=== PATIENT | female | born 1950 | race Caucasian/White ===

== ENCOUNTER 2018-03-11 11:59 | Outpatient (REF) | payer MEDICARE, BC, SELFPAY ==
[2018-03-11 21:34] LABS: TSH (W/Ref FT4) 4.12 uIU/mL (0.358-3.74)
[2018-03-11 21:52] LABS: FREE T4 0.85 ng/dL (0.76-1.46)
== END 2018-03-11 12:19 ==
LOC: NCHCN 11:59
PROVIDERS: PCP Family Medicine; Visit Provider Family Medicine
DX: E03.9 Hypothyroidism, unspecified (principal)
CPT/HCPCS: 84439; 84443

== ENCOUNTER 2018-05-12 10:13 | Outpatient (CLI) | payer MEDICARE, BC, SELFPAY ==
[2018-05-12 13:28] LABS: Cholesterol 264 mg/dL (50-200); HDL Cholesterol 70 mg/dL (40-60); LDL CHOLESTEROL 164 mg/dL (<100); Triglyceride 113 mg/dL (30-150)
[2018-05-12 13:37] LABS: TSH (W/Ref FT4) 1.07 uIU/mL (0.358-3.74)
== END 2018-05-12 10:33 ==
PROVIDERS: Family Medicine; PCP Family Medicine; Visit Provider Internal Medicine
DX: E78.5 Hyperlipidemia, unspecified (principal); E03.9 Hypothyroidism, unspecified
CPT/HCPCS: 36415; 80061; 83721; 84443

== ENCOUNTER 2018-12-01 12:25 | Outpatient (CLI) | payer MEDICARE, BC, SELFPAY ==
--- NOTE | 2018-12-01 12:40 | DI.RAD_ITS ---
SYMPTOMS/DIAGNOSIS: LEFT CHEST RATTLE, CHEST PAIN, R07.9 CHEST X-RAY, PA AND LATERAL: Comparison is 03/06/10 and 03/26/10. The heart size is within normal limits. There is unchanged tortuosity of the thoracic aorta. The pulmonary vasculature is otherwise unremarkable. The lungs are free of infiltrates, effusions or pneumothoraces. There is scarring or atelectasis seen in the left lung base. No acute osseous abnormalities identified. The tracheal air shadow is grossly unremarkable. IMPRESSION: Negative examination.
[2018-12-01 13:02] LABS: Absolute Basophil Count 0.02 k/cumm (0.0-0.2); Absolute Eosinophil Count 0.24 k/cumm (0.0-0.7); Absolute Lymphocyte Count 1.78 k/cumm (1.2-3.4); Absolute Monocyte Count 0.32 k/cumm (0.11-0.7); Absolute Neutrophil Count 1.58 k/cumm (1.2-6.7); Basophils % 0.5; Eosinophils % 6.1; HCT 41.3 % (36.0-46.0); HGB 13.7 g/dL (12.0-15.5); Lymphocytes % 45.2; Mean Corp. HGB Concentration 33.2 g/dL (32.0-36.0); Mean Corpuscular Hemoglobin 33.1 pg (27.0-33.0); Mean Corpuscular Volume 99.8 fL (80-95); Mean Platelet Volume 9.4 fL (8.0-11.0); Monocytes % 8.1; Neutrophils % 40.1; Platelet Count 169 x1000/uL (130-400); RBC 4.14 m/cumm (4.00-5.20); RBC Distribution Width 12.2 % (11.7-14.6); White Blood Cell Count 3.94 k/cumm (4.4-10.8)
[2018-12-01 15:10] LABS: TSH (W/Ref FT4) 1.24 uIU/mL (0.36-3.74)
[2018-12-02 15:46] LABS: Anion Gap 12.3 mmol/L (3-11); BUN 11 mg/dL (7-18); CO2 25.7 mmol/L (21.0-32.0); CREATININE 0.58 mg/dL (0.55-1.02); Calcium 8.6 mg/dL (8.5-10.1); Calculated LDL 151 mg/dL; Chloride 102 mmol/L (98-107); Cholesterol 240 mg/dL (50-200); Glucose 113 mg/dL (70-100); HDL Cholesterol 64 mg/dL (40-60); Potassium 3.9 mmol/L (3.5-5.1); Sodium 140 mmol/L (136-145); Triglyceride 128 mg/dL (30-150)
== END 2018-12-01 12:45 ==
PROVIDERS: PCP Family Medicine; Visit Provider Family Medicine
DX: R07.9 Chest pain, unspecified (principal); E03.9 Hypothyroidism, unspecified; R53.83 Other fatigue; R09.89 Other specified symptoms and signs involving the circulatory and respiratory systems
CPT/HCPCS: 36415; 80048; 80061; 83721; 71046; 84443; 85025

== ENCOUNTER 2019-06-01 18:52 | Outpatient (REF) | payer MEDICARE, BC, SELFPAY | END 2019-06-01 19:12 | LOC: LBN 18:52 | PROVIDERS: PCP Family Medicine; Visit Provider Nurse Practitioner Family | DX: J02.9 Acute pharyngitis, unspecified (principal) | CPT/HCPCS: 87070 ==

== ENCOUNTER 2019-11-17 16:30 | Outpatient (REF) | payer MEDICARE, BC, SELFPAY ==
[2019-11-17 21:40] LABS: Abs Immature Grans 0.01 k/cumm (0.0-0.09); Absolute Basophil Count 0.01 k/cumm (0.0-0.2); Absolute Eosinophil Count 0.13 k/cumm (0.0-0.7); Absolute Lymphocyte Count 1.74 k/cumm (1.2-3.4); Absolute Monocyte Count 0.35 k/cumm (0.11-0.7); Absolute Neutrophil Count 1.78 k/cumm (1.2-6.7); Basophils % 0.2; Eosinophils % 3.2; HCT 43.2 % (36.0-46.0); HGB 14.1 g/dL (12.0-15.5); Immature Grans % 0.2 %; Lymphocytes % 43.3; Mean Corp. HGB Concentration 32.6 g/dL (32.0-36.0); Mean Corpuscular Hemoglobin 33.3 pg (27.0-33.0); Mean Corpuscular Volume 101.9 fL (80-95); Mean Platelet Volume 9.7 fL (8.0-11.0); Monocytes % 8.7; Neutrophils % 44.4; Platelet Count 202 x1000/uL (130-400); RBC 4.24 m/cumm (4.00-5.20); RBC Distribution Width 12.5 % (11.7-14.6); White Blood Cell Count 4.02 k/cumm (4.4-10.8)
[2019-11-17 22:27] LABS: Anion Gap 8.5 mmol/L (3-11); BUN 13 mg/dL (7-18); CO2 29.5 mmol/L (21.0-32.0); CREATININE 0.65 mg/dL (0.55-1.02); Calcium 9.1 mg/dL (8.5-10.1); Chloride 103 mmol/L (98-107); Glucose 99 mg/dL (74-106); Potassium 3.7 mmol/L (3.5-5.1); Sodium 141 mmol/L (136-145); TSH 0.67 uIU/mL (0.36-3.74)
[2019-11-17 22:29] LABS: Folate > 20.0 ng/mL (8.6-20.0)
[2019-11-17 23:04] LABS: Vitamin B12 361 pg/mL (193-986)
== END 2019-11-17 16:50 ==
LOC: NCHCN 16:30
PROVIDERS: PCP Family Medicine; Visit Provider Family Medicine
DX: E03.9 Hypothyroidism, unspecified (principal); D75.89 Other specified diseases of blood and blood-forming organs; R42 Dizziness and giddiness; R53.83 Other fatigue
CPT/HCPCS: 80048; 82607; 82746; 84443; 85025

== ENCOUNTER 2020-01-05 14:40 | Outpatient (REF) | payer MEDICARE, BC, SELFPAY ==
[2020-01-09 13:53] LABS: Patient Race White; SARS-CoV-2 RNA Undetected (Undetected); SARS-CoV-2 Specimen Source Nasopharynx
== END 2020-01-05 15:00 ==
LOC: NCHCN 14:40
PROVIDERS: PCP Family Medicine; Visit Provider Family Medicine
DX: Z20.828 Contact with and (suspected) exposure to other viral communicable diseases (principal)
CPT/HCPCS: U0003

== ENCOUNTER 2020-08-23 19:03 | Outpatient (REF) | payer MEDICARE, BC, SELFPAY ==
[2020-08-23 13:09] LABS: HCT 42.4 % (36.0-46.0); HGB 14.2 g/dL (11.2-15.7); MCH 33.1 pg (27.0-33.0); MCHC 33.5 % (32.0-36.0); MCV 98.8 fL (80-95); MPV 9.6 fL (8.0-11.0); Platelet Count 187 10^3/uL (130-400); RBC 4.29 10^6/uL (3.93-5.22); RDW 12.4 % (11.7-14.6); RDW-SD 44.9 fL
[2020-08-23 13:52] LABS: ALT 28 U/L (14-59); AST 26 U/L (15-37); Albumin 4.1 g/dL (3.4-5.0); Alkaline Phosphatase 32 U/L (46-116); Anion Gap 10.1 mmol/L (3-11); BUN 9 mg/dL (7-18); Bilirubin, Total 0.5 mg/dL (0.2-1.0); CO2 27.9 mmol/L (21.0-32.0); CREATININE 0.6 mg/dL (0.55-1.02); Calcium 9.1 mg/dL (8.5-10.1); Chloride 106 mmol/L (98-107); Glucose 94 mg/dL (74-106); Potassium 3.9 mmol/L (3.5-5.1); Sodium 144 mmol/L (136-145); TSH (W/Ref FT4) 1.02 uIU/mL (0.36-3.74); Total Protein 6.7 g/dL (6.4-8.2)
== END 2020-08-23 19:04 | disposition home or self-care (01) ==
LOC: NCHCN 19:03
PROVIDERS: PCP Family Medicine; Visit Provider Nurse Practitioner Family
DX: I48.0 Paroxysmal atrial fibrillation (principal)
CPT/HCPCS: 80053; 85027; 83735; 84443

== ENCOUNTER 2021-03-20 15:10 | Outpatient (REF) | payer MEDICARE, BC, SELFPAY ==
[2021-03-20 16:14] LABS: HCT 42.6 % (36.0-46.0); HGB 13.9 g/dL (11.2-15.7); MCH 33.3 pg (27.0-33.0); MCHC 32.6 % (32.0-36.0); MCV 102.2 fL (80-95); MPV 9.6 fL (8.0-11.0); Platelet Count 215 10^3/uL (130-400); RBC 4.17 10^6/uL (3.93-5.22); RDW 12.2 % (11.7-14.6); RDW-SD 46.2 fL; WBC 5.65 10^3/uL (4.4-10.8)
[2021-03-20 16:17] LABS: ESR 2 mm/hr (0-30)
[2021-03-20 16:27] LABS: ALT 23 U/L (14-59); AST 21 U/L (15-37); Albumin 4.1 g/dL (3.4-5.0); Alkaline Phosphatase 44 U/L (46-116); Bilirubin, Total 0.3 mg/dL (0.2-1.0); Total Protein 6.9 g/dL (6.4-8.2)
[2021-03-20 16:39] LABS: Bilirubin, Direct 0.1 mg/dL (0.0-0.2); C-Reactive Protein 0.07 mg/dL (0.0-0.3)
== END 2021-03-20 15:11 | disposition home or self-care (01) ==
LOC: NCHCN 15:10
PROVIDERS: PCP Family Medicine; Visit Provider Family Medicine
DX: K06.8 Other specified disorders of gingiva and edentulous alveolar ridge (principal)
CPT/HCPCS: 80076; 85027; 85652; 85610; 86140; 93970

== ENCOUNTER 2021-07-07 14:31 | Outpatient (REF) | payer MEDICARE, BC, SELFPAY ==
--- NOTE | 2021-07-07 13:45 | PAPFT_PTH ---
PATIENT: Anne Dawson LOC: [facility]#:[id number] AGE/SX: 70/F ROOM: RE07/07/[address]: Alvarez Mann : 1950 BED: DIS: 07/07/2021 SPEC #: [id number] RECD: 07/10/21 14:35 STATUS: KEIRA REBrooks #: [id number] KATE: 07/07/21 13:[address]: Alvarez Mann DEPT: [facility] Cytology RECD BY: Kimberly Raygoza Tissues: 1 - CX/ENDOCX FOR PAP SMEARS Procedures: PAP THIN PREP/UVM Screening HPV DNA PROBE Comments: [id number]
--- OUTSIDE RECORDS SUMMARY | 2021-07-07 14:37 | XMS_ITS | CCD ---
:1950 Author Care Team Providers Name Role Phone MD KATHERIN Attending Physician Unavailable Vital Signs Unknown or Not Available. Allergies Allergy Code Allergy Type Reaction Status SHELLFISH\X0D0A\ {Clinical 0 Drug allergy NAUSEA AND A ctive monitoring unavailable} VOMITING ? STEROID VS PARTH 0 Drug allergy ITCHYNESS AFTER Active {Clinical monitoring JOINT INJECTION unavailable} TAPE {Clinical monitoring 0 Drug allergy Ac tive unavailable} PROCHLORPERAZINE 8704 Drug allergy Active TAPE 0 Allergy to Active substance Procedures Unknown or Not Available. History of Immunizations Unknown or Not Available. Problems Unknown or Not Available. Results Unknown or Not Available. Active Medications Unknown or Not Available. Medications Administered During Visit Unknown or Not Available. Encounters Encounter Diagnosis Diagnosis Code Start Date Pain in left leg S51393 01/10/2021 Social History Smoking Status Code Start Date End Date Never smoker [id number] Patient Decision Aids Unknown or Not Available. Discharge Instructions You were admitted to [facility] on 01/10/2021 12:55 with a principal diagnosis of Pain in left leg You were discharged from [facility] on 01/10/2021 12:55 Should you have any questions prior to d ischarge, please contact a member of your healthcare team. If you have left the spital and have any questions, please contact your primary care physician. Chief Complaint and Reason For Visit Unknown or Not Available. Function Status Unknown or Not Available. Plan of Care Unknown or Not Available. Referral/Transition of Care Unknown or Not Available.
--- OUTSIDE RECORDS SUMMARY | 2021-07-07 14:37 | XMS_ITS | CCD ---
:1950 Author Care Team Providers Name Role Phone MITCHELL Attending Physician Unavailable MITCHELL Sahu (Secondary) Physician Unavailab le Vital Signs Unknown or Not Available. Allergies [...] Encounters Encounter Diagnosis Diagnosis Code Start Date Idiopathic osteoarthritis [id number] 03/10/2021 Social History Smoking Status Code Start Date End Date Never smoker [id number] Patient Decision Aids Unknown or Not Available. Discharge Instructions You were admitted to [facility] on 03/10/2021 09:02 with a principal diagnosis of Unilateral primary osteoart hritis, right knee You were discharged from [facility] on 03/10/2021 00:00 Should you have any questions prior to d ischarge, please contact a member of your healthcare team. If you have left the ho spital and have any questions, please contact your primary care physician. Chief Complaint and Reason For Visit Unknown or Not Available. Function Status Unknown or Not Available. Plan of Care Unknown or Not Available. Referral/Transition of Care Unknown or Not Available.
--- OUTSIDE RECORDS SUMMARY | 2021-07-07 14:37 | XMS_ITS | CCD ---
:1950 Author Care Team Providers Name Role Phone MD HERMINIO Attending Physician Unavailable Vital Signs Unknown or [...] Encounters Encounter Diagnosis Diagnosis Code Start Date Encounter for screening mammogram for malignant Z1231 11/16/2020 neoplasm of breast Social History Smoking Status Code Start Date End Date Never smoker [id number] Patient Decision Aids Unknown or Not Available. Discharge Instructions You were admitted to [facility] on 11/16/2020 08:54 with a principal diagnosis of Encounter for screening carl mogram for malignant neoplasm of breast You were discharged from [facility] on 11/16/2020 08:54 Should you have any questions prior to [...]
--- OUTSIDE RECORDS SUMMARY | 2021-07-07 14:37 | XMS_ITS | CCD ---
:1950 Author Care Team Providers Name Role Phone ARIANA SANDOVAL Attending Physician Unavailable Vital Signs Unknown or [...] Available. Problems Unknown or Not Available. Results BASIC METABOLIC PANEL (BMP) - Collect Da te/Time: 06/19/2021 09:36 Test Name Code Test Result Test Units Test Ref Range GLUCOSE 2345-7 91 mg/dL L=70 H=11 6 BUN 3094-0 10 mg/dL L=6 H=25 CREATININE 2160-0 0.61 mg/dL L=0.51 H=0.95 SODIUM SERUM 2951-2 142 mmol/L L=136 H=14 5 POTASSIUM SERUM 2823-3 4.2 mmol/L L=3.4 H =5.2 CHLORIDE SERUM 2075-0 104 mmol/L L=96 H= 110 CARBON DIOXIDE (CO2) 2028-9 32 mmol/L L=22 H=34 ANION GAP 83293-9 6.4 mmol/L CALCIUM SERUM 21754-8 9.1 mg/dL L=8.2 H=10.2 AGE 70 years eGFR (non-Afr.Amer.) 18393-4 97 mL/min eGFR (Afr-Tanzanian) 69026-3 117 mL/min NTX-TELOPEPTIDE URINE* - Collect Date/Ti me: 06/19/2021 09:36 Test Name Code Test Result Test Units Test Ref [place] N[place] 13591-6 31 nmol/[place] [address]-1 23 Creatinine, 2161-8 15 N/A Random, U Active Medications Unknown or Not Available. Medications Administered During Visit Unknown or Not Available. Encounters Encounter Diagnosis Diagnosis Code Start Date Senile osteoporosis [id number] 06/19/2021 Social History Smoking Status Code Start Date End Date Never smoker [id number] Patient Decision Aids Unknown or Not Available. Discharge Instructions You were admitted to [facility] on 06/19/2021 09:02 with a principal diagnosis of Age-related osteoporosis wi thout current pathological fracture You had the following tests done: BASIC METABOLIC PANEL (BMP) NTX-TELOPEPTIDE URINE* You were discharged from [facility] on 06/19/2021 09:02 Should you have any questions prior to [...]
--- OUTSIDE RECORDS SUMMARY | 2021-07-07 14:37 | XMS_ITS | CCD ---
:1950 Author Care Team Providers Name Role Phone MD MITCHELL Attending Physician Unavailable Vital Signs Unknown or [...] TAPE 0 Allergy to Active substance Procedures Procedure Code Procedure Type Date Arthrocentesis Aspir&/Inj Major 88497 CPT 11/30/2020 Jt/Bursa w/o US History of Immunizations Unknown or Not Available. Problems Unknown or Not Available. Results Unknown or Not Available. Active Medications Unknown or Not Available. Medications Administered During Visit Unknown or Not Available. Encounters Encounter Diagnosis Diagnosis Code Start Date Unilateral primary osteoarthritis, right knee M1711 11/30/2020 Social History Smoking Status Code Start Date End Date Never smoker [id number] Patient Decision Aids Unknown or Not Available. Discharge Instructions You were admitted to [facility] on 11/30/2020 14:27 with a principal diagnosis of Unilateral primary osteoart hritis, right knee You had the following procedures done: Arthrocentesis Aspir&/Inj Major Jt/Bursa w/o US You were discharged from [facility] on 11/30/2020 14:27 Should you have any questions prior to [...]
--- OUTSIDE RECORDS SUMMARY | 2021-07-07 14:37 | XMS_ITS | CCD ---
:1950 Author Care Team Providers Name Role Phone Sally DURHAM Attending Physician Unavailable Vital Signs Unknown or [...] Available. Problems Unknown or Not Available. Results CULT URINE CULTURE* - Collect Date/Time: 06/24/2021 09:46 Test Name Code Test Result Test Units Test Ref Range COLLECTION MODE: CLEAN CATCH N/A URINALYSIS WITH REFLEX CULT IF POSITIVE* - Collect Date/Time: 06/24/2021 09:46 Test Name Code Test Result Test Units Test Ref Range COLLECTION MODE: CLEAN CATCH N/A Color YELLOW N/A yellow Appearance HAZY N/A clear Glucose urine NEGATIVE N/A negative mg/ dl Bilirubin NEGATIVE N/A negative Ketones TRACE N/A negative mg/d l Spec gravity 1.025 N/A 1.003 - 1.030 pH urine 6.0 N/A 5.0 - 7.0 Protein NEGATIVE N/A negative mg/d l Urobilinogen 0.2 N/A <or= 1 EU/d l Nitrite. NEGATIVE N/A negative Blood LARGE N/A negative Leukocytes. SMALL N/A negative MICROSCOPIC INDICATED N/A WBCs. >100 N/A 0-5 / hpf RBCs 5-10 N/A 0-5 / hpf Epith cells 0-5 N/A 0-5 / hpf Cell types squamous N/A Crystals none N/A none Bacteria moderate N/A none Mucus none N/A none Casts none N/A none /lp f Other AMOEBOID LEUKOCYTES N/A Active Medications Unknown or Not Available. Medications Administered During Visit Unknown or Not Available. Encounters Encounter Diagnosis Diagnosis Code Start Date History of - urinary disease [id number] 06/24/2021 Social History Smoking Status Code Start Date End Date Never smoker [id number] Patient Decision Aids Unknown or Not Available. Discharge Instructions You were admitted to [facility] on 06/24/2021 09:44 with a principal diagnosis of Personal history of other d iseases of urinary system You had the following tests done: CULT URINE CULTURE* URINALYSIS WITH REFLEX CULT IF POSITIVE* You were discharged from [facility] on 06/24/2021 09:44 Should you have any questions prior to [...]
--- OUTSIDE RECORDS SUMMARY | 2021-07-07 14:37 | XMS_ITS | CCD ---
:1950 Author Care Team Providers Name Role Phone MD KATHERIN Attending Physician Unavailable MD KATHERIN Er Physician 1 Unavailable Vital Signs Unknown or Not Available. [...] Code Start Date Pain in left leg S41795 01/09/2021 Social History Smoking Status Code Start Date End Date Never smoker [id number] Patient Decision Aids Unknown or Not Available. Discharge Instructions You were admitted to [facility] 01 on 01/09/2021 09:53 with a principal diagnosis of Pain in left leg You were discharged from [facility] on 01/09/2021 11:14 Should you have any questions prior to d ischarge, please contact a member of your healthcare team. If you have left the spital and have any questions, please contact your primary care physician. Chief Complaint and Reason For Visit Chief Complaint Date of Onset LT LEG PAIN Function Status Unknown or Not Available. Plan of Care Unknown or Not Available. Referral/Transition of Care Unknown or Not Available.
--- OUTSIDE RECORDS SUMMARY | 2021-07-07 14:37 | XMS_ITS | CCD ---
[...] Available. Problems Unknown or Not Available. Results GLUCOSE FASTING BLOOD* - Collect Date/Ti me: 04/14/2021 08:00 Test Name Code Test Result Test Units Test Ref Range GLUCOSE FASTING 74098-7 96 mg/dL L=70 H =116 LIPID PANEL* - Collect Date/Time: 2020 08:00 Test Name Code Test Result Test Units Test Ref Range CHOLESTEROL 2093-3 301 mg/dL L=0 H=200 TRIGLYCERIDES 2571-8 76 mg/dL L=57 H=256 HDL 2085-9 75 mg/dL L=38 H=92 non-HDL-C 18533-3 226 mg/dL L=0 H=160 LDL (CALC) 56947-7 211 mg/dL L=0 H=130 % HDL 24.9 % Chol/HDL Ratio 9830-1 4.0 L=0.0 H=4.4 CHD Relative Risk 0.9 x Avg L=0.0 H=1.0 LDL/HDL Ratio 48908-1 2.8 L=0.0 H=3.2 CHD Relative Risk. 0.9 x Avg L=0.0 H=1.0 FASTING STATUS: FASTING N/A Active Medications Unknown or Not Available. Medications Administered During Visit Unknown or Not Available. Encounters Encounter Diagnosis Diagnosis Code Start Date Prediabetes R7303 04/14/2021 Social History Smoking Status Code Start Date End Date Never smoker [id number] Patient Decision Aids Unknown or Not Available. Discharge Instructions You were admitted to [facility] on 04/14/2021 07:23 with a principal diagnosis of Prediabetes You had the following tests done: GLUCOSE FASTING BLOOD* LIPID PANEL* You were discharged from [facility] on 04/14/2021 07:23 Should you have any questions prior to [...]
--- OUTSIDE RECORDS SUMMARY | 2021-07-07 14:38 | XMS_ITS | CCD ---
:1950 Author Care Team Providers Name Role Phone MD ROMAN Attending Physician Unavailable Vital Signs Unknown or [...] Available. Problems Unknown or Not Available. Results [facility] COVID RHEONIX - Collect Date/Time : 01/25/2021 11:00 Test Name Code Test Result Test Units Test Ref Range SOURCE= Anterior nasal N/A Tier- EXPOSURE N/A SARS COV2 RNA: 31428-4 NEGATIVE N/A REFERENCE RAN GE: NEGAT Active Medications Unknown or Not Available. Medications Administered During Visit Unknown or Not Available. Encounters Encounter Diagnosis Diagnosis Code Start Date CONTACT WITH AND SUSPECTED EXPOSURE TO COVID-19 G31274 01/25/2021 Social History Smoking Status Code Start Date End Date Never smoker [id number] Patient Decision Aids Unknown or Not Available. Discharge Instructions You were admitted to [facility] on 01/25/2021 14:27 with a principal diagnosis of Contact with and (suspected ) exposure to COVID-19 You had the following tests done: [facility] COVID RHEONIX You were discharged from [facility] on 01/25/2021 14:27 Should you have any questions prior [...]
== END 2021-07-07 14:32 | disposition home or self-care (01) ==
LOC: NCHCN 14:31
PROVIDERS: PCP Family Medicine; Visit Provider Family Medicine
DX: Z87.448 Personal history of other diseases of urinary system (principal); Z12.4 Encounter for screening for malignant neoplasm of cervix; Z11.51 Encounter for screening for human papillomavirus (HPV)
CPT/HCPCS: 88142; 87086; 87624

== ENCOUNTER 2023-05-08 11:28 | Outpatient (REF) | payer MEDICARE, BC, SELFPAY ==
--- OUTSIDE RECORDS SUMMARY | 2023-05-08 11:32 | XMS_ITS | CCD ---
Author Name Unknown Address [address] [place] [address] [id number] Organization Unknown Address [address] [place] [address] [phone] Care Team Providers Care Tight Rope Walker Name Role Phone BOB OWENS MD Attending Physician [phone] Vital Signs Unknown or Not Available. Allergies Allergy Code Allergy Type Reaction Status SHELLFISH\X0D0A\ {Clinical monitoring unavailable} 0 Drug allergy NAUSEA AND VOMITING Acti ve ? STEROID VS PARTH {Clinical monitoring unavailable} 0 Drug allergy ITCHYNESS AFTER JOINT INJECTION Active TAPE {Clinical monitoring unavailable} 0 Drug allergy Active PROCHLORPERAZINE 8704 Drug allergy Active TAPE 0 Allergy to substance Acti ve Procedures Unknown or Not Available. History of Immunizations Unknown or Not Available. Problems Unknown or Not Available. Results [facility]MAR DUMAS - [facility] ct Date/Time: 01/27/2021 11:00 Test Name Code Test Result Test Units Test Ref Rang e SOURCE= Anterior nasal N/A Tier- EXPOSURE N/A SARS COV2 RNA: 60620-9 POSITIVE N/A REFERENCE RANGE: NEGAT Active Medications Unknown or Not Available. Medications Administered During Visit Unknown or Not Available. Encounters Encounter Diagnosis Diagnosis Code Start Date COVID-19 U071 01/27/2021 Social History Smoking Status Code Start Date End Date Never smoker [id number] Patient Decision Aids Unknown or Not Available. Discharge Instructions You were admitted to [facility] on 01/27/2021 14:37 with a principal diagnosis of COVID-19 You had the following tests done:OMAR DUMAS You were discharged from [facility] on 01/27/2021 14:37 Should you have any questions prior to discharge, please contact a member of your healthcare team. If you have left the hospital and have any questions, please contact your primary care physician. Chief Complaint and Reason For Visit Unknown or Not Available. Function Status Unknown or Not Available. Plan of Care Unknown or Not Available. Referral/Transition of Care Unknown or Not Available.
--- OUTSIDE RECORDS SUMMARY | 2023-05-08 11:32 | XMS_ITS | CCD ---
Author Name Unknown Address [address] [place] [address] [phone] Organization Unknown Address [address] [place] [address] [phone] Care Team Providers Care Medical Lab Director Name Role Phone BOB OWENS MD Attending Physician [phone] Vital Signs Unknown or Not Available. Allergies [...] Problems Unknown or Not Available. Results [facility]MAR COVID GAYX - [place] ct Date/Time: 01/25/2021 11:00 Test Name Code Test Result Test Units Test Ref Rang e SOURCE= Anterior nasal N/A Tier- EXPOSURE N/A SARS COV2 RNA: 26751-2 NEGATIVE N/A REFERENCE RANGE: NEGAT Active Medications Unknown or Not Available. Medications Administered During Visit Unknown or Not Available. Encounters Encounter Diagnosis Diagnosis Code Start Date CONTACT WITH AND SUSPECTED EXPOSURE TO COVID-19 R16963 01/25/2021 Social History Smoking Status Code Start Date End Date Never smoker [id number] Patient Decision Aids Unknown or Not Available. Discharge Instructions You were admitted to [facility] on 01/25/2021 14:27 with a principal diagnosis of Contact with and (suspected) exposure to COVID-19 You had the following tests done:OMAR RASHIDX You were discharged from [facility] on 01/25/2021 14:27 Should you have any [...]
--- OUTSIDE RECORDS SUMMARY | 2023-05-08 11:33 | XMS_ITS | CCD ---
Author Name Unknown Address [address] [place] [address] [id number] Organization Unknown Address [address] [place] [address] [phone] Care Team Providers Care Infection Control Preventionist Name Role Phone DOMENICO LYN Attending Physician [phone] DOMENICO LYN Rounding (Secondary) Physician [phone] Vital Signs Unknown or Not Available. Allergies [...] Diagnosis Diagnosis Code Start Date Idiopathic osteoarthritis [id number] 2022 Social History Smoking Status Code Start Date End Date Never smoker 554231774 Patient Decision Aids Unknown or Not Available. Discharge Instructions You were admitted to [facility] on 10/08/2022 00:00 with a principal diagnosis of Unilateral primary osteoarthritis, right knee You were discharged from [facility] on 10/08/2022 00:00 Should you have any questions prior [...]
--- OUTSIDE RECORDS SUMMARY | 2023-05-08 11:33 | XMS_ITS | CCD ---
Author Name Unknown Address [address] [place] [address] [id number] Organization Unknown Address [address] [place] [address] [phone] Care Team Providers Care Supervisor Nurse Name Role Phone FLORENTIN PANDEY MD Attending Physician [phone] Vital Signs Unknown or Not Available. Allergies [...] Code Start Date Pain in left leg T69007 01/10/2021 Social History Smoking Status Code Start Date End Date Never smoker 141450333 Patient Decision Aids Unknown or Not Available. Discharge Instructions You were admitted to [facility] on 01/10/2021 12:55 with a principal diagnosis of Pain in left leg You were discharged from [facility] on 01/10/2021 12:55 Should you [...]
--- OUTSIDE RECORDS SUMMARY | 2023-05-08 11:33 | XMS_ITS | CCD ---
Author Name Unknown Address [address] [place] [address] [id number] Organization Unknown Address [address] [place] [address] [phone] Care Team Providers Care Prepleater Name Role Phone FLORENTIN PANDEY MD Attending Physician [phone] FLORENTIN PANDEY MD Er Physician [phone] Vital Signs Unknown or Not Available. Allergies [...] Code Start Date Pain in left leg H48798 01/09/2021 Social History Smoking Status Code Start Date End Date Never smoker [id number] Patient Decision Aids Unknown or Not Available. Discharge Instructions You were admitted to [facility] on 01/09/2021 09:53 with a principal diagnosis of Pain in left leg You were discharged from [facility] on 01/09/2021 11:14 Should you have any [...]
--- OUTSIDE RECORDS SUMMARY | 2023-05-08 11:33 | XMS_ITS | CCD ---
Author Name Unknown Address [address] [place] [address] [phone] Organization Unknown Address [address] [place] [address] [phone] Care Team Providers Care National Dedicated Truck Driver Name Role Phone CRYSTAL MEDRANO MD Attending Physician [phone] Vital Signs Unknown or Not Available. Allergies Allergy Code Allergy Type Reaction Status SHELLFISH\X0D0A\ {Clinical monitoring unavailable} 0 Drug allergy NAUSEA AND VOMITING Acti ve ? STEROID VS PARTH {Clinical monitoring unavailable} 0 Drug allergy ITCHYNESS AFTER JOINT INJECTION Active TAPE {Clinical monitoring unavailable} 0 Drug allergy Active PROCHLORPERAZINE 8704 Drug allergy Active TAPE 0 Allergy to substance Acti ve Procedures Procedure Code Procedure Type Date Arthrocentesis Aspir&/[place] [address] CPT 11/30/2020 History of Immunizations Unknown or Not Available. Problems Unknown or Not Available. Results Unknown or Not Available. Active Medications Unknown or Not Available. Medications Administered During Visit Unknown or Not Available. Encounters Encounter Diagnosis Diagnosis Code Start Date Unilateral primary osteoarthritis, right knee M1 711 11/30/2020 Social History Smoking Status Code Start Date End Date Never smoker 102573140 Patient Decision Aids Unknown or Not Available. Discharge Instructions You were admitted to [facility] on 11/30/2020 14:27 with a principal diagnosis of Unilateral primary osteoarthritis, right knee You had the following procedures done:Arthrocentesis Aspir&/Inj Major Jt/Bursa w/o US You were discharged from [facility] on 11/30/2020 14:27 Should you have [...]
--- OUTSIDE RECORDS SUMMARY | 2023-05-08 11:33 | XMS_ITS | CCD ---
Author Name Unknown Address [address] [place] [address] [phone] Organization Unknown Address [address] [place] [address] [phone] Care Team Providers Care Detacker Name Role Phone СЕРГЕЙ AGUIRRE Attending Physician [phone] Vital Signs Unknown or Not Available. Allergies [...] Diagnosis Diagnosis Code Start Date Pain in right foot G54040 01/28/2023 Social History Smoking Status Code Start Date End Date Never smoker [id number] Patient Decision Aids Unknown or Not Available. Discharge Instructions You were admitted to [facility] on 01/28/2023 09:02 with a principal diagnosis of Pain in right foot You were discharged from [facility] on 01/28/2023 09:02 Should you have any questions prior [...]
--- OUTSIDE RECORDS SUMMARY | 2023-05-08 11:33 | XMS_ITS | CCD ---
Author Name Unknown Address [address] [place] [address] [phone] Organization Unknown Address [address] [place] [address] [phone] Care Team Providers Care Career Education Teacher Name Role Phone KRISTY CHENEY Attending Physician [phone] KRISTY CHENEY Er Physician 3 [phone] JYOTI Ernandez Registered Nurse [phone] Vital Signs Vital Sign Value Unit Date/Time Recent/Initial ? BMI (Body Mass Index) 26.96 kg/m^2 09/13/2022 00: 58 Initial VS Weight Measured 162 lbs 09/13/2022 00:58 Ini tial VS Height 65 in 09/13/2022 00:58 Initial VS BSA (Body Surface Area) 1.84 m^2 09/13/2022 0 0:58 Initial VS BP Systolic 157 mmHg 09/13/2022 00:58 Initial VS BP Diastolic 89 mmHg 09/13/2022 00:58 Initia l VS Respiratory Rate 18 bpm 09/13/2022 00:58 In itial VS Heart Rate 62 bpm 09/13/2022 00:58 Initial VS O2 % BldC Oximetry 97 % 09/13/2022 00:58 Initial VS Body Temperature 36.1 degrees 09/13/2022 00:58 In itial VS BP Systolic 136 mmHg 09/13/2022 02:34 Most Re cent VS BP Diastolic 84 mmHg 09/13/2022 02:34 Most R ecent VS Respiratory Rate 18 bpm 09/13/2022 02:[address] Recent VS Heart Rate 55 bpm 09/13/2022 02:34 Most Rec ent VS O2 % BldC Oximetry 95 % 09/13/2022 02:34 Most Recent VS Allergies Allergy Code Allergy Type Reaction Status [...] Results BASIC METABOLIC PANEL (BMP) - Collect Date/Time: 09/13/2022 01:20 Test Name Code Test Result Test Units Test Ref Rang e GLUCOSE 2345-7 95 mg/dL L=70 H=116 BUN 3094-0 11 mg/dL L=6 H=25 CREATININE 2160-0 0.55 mg/dL L=0.51 H=0.95 SODIUM SERUM 2951-2 141 mmol/L L=136 H=145 POTASSIUM SERUM 2823-3 3.6 mmol/L L=3.4 H=5 .2 CHLORIDE SERUM 2075-0 105 mmol/L L=96 H=110 CARBON DIOXIDE (CO2) 2028-9 26 mmol/L L=22 H=34 ANION GAP 60636-2 9.6 mmol/L CALCIUM SERUM 00868-3 9.0 mg/dL L=8.2 H=10. 2 AGE 72 years eGFR (non-Afr.Amer.) 79687-0 109 mL/min eGFR (Afr-Grenadian) 73386-6 >120 mL/min BNP (PRO-B NATRIURETIC PEPTI DE) - Collect Date/Time: 09/13/2022 01:20 Test Name Code Test Result Test Units Test Ref Rang e NT-proBNP 88774-6 265.0 pg/mL L=0.0 H=125 HEPATIC FUNCTION PANEL - Col lect Date/Time: 09/13/2022 01:20 Test Name Code Test Result Test Units Test Ref Rang e ALBUMIN 1751-7 3.6 gm/dL L=3.4 H=5.0 TOTAL PROTEIN 2885-2 6.6 gm/dL L=6.0 H=8.0 BILIRUBIN TOTAL 1975-2 0.2 mg/dL L=0.0 H=1 .3 BILIRUBIN DIRECT 1971-1 0.10 mg/dL L=0.00 H =0.50 SGOT (AST) 1920-8 24 U/L L=15 H=37 SGPT (ALT) 1742-6 23 U/L L=12 H=78 ALK. PHOS. 6768-6 46 U/L L=46 H=116 LIPASE* NEW - Collect Date/T frederic: 09/13/2022 01:20 Test Name Code Test Result Test Units Test Ref Rang e LIPASE. 30 U/L L=16 H=77 TROPONIN HIGH SENSITIVITY* - Collect Date/Time: 09/13/2022 01:20 Test Name Code Test Result Test Units Test Ref Rang e TROPONIN HS 7.9 pg/mL L=0.0 H=60.4 Specimen seq. ADM. N/A CBC W/ DIFFERENTIAL* - Colle ct Date/Time: 09/13/2022 01:20 Test Name Code Test Result Test Units Test Ref Rang e WBC 6690-2 4.15 th/cmm L=5.00 H=10.00 NEUT % 49.7 % L=40.0 H=80.0 LYMPH % 40.2 % L=10.0 H=50.0 MONO % 90824-0 7.0 % L=2.0 H=12.0 EOS % 2.4 % L=0.0 H=8.0 BASO % 0.5 % L=0.0 H=3.0 IG % 2514-8 0.2 % L=0.0 H=1.1 NRBC % 37755-5 0.0 % L=0.0 H=0.0 NEUT abs count 751-8 2.1 th/cmm L=1.6 H=8. 4 LYMPH abs count 731-0 1.7 th/cmm L=1.5 H=4 .0 MONO abs count 742-7 0.3 th/cmm L=0.2 H=1. 0 EOS abs count 711-2 0.1 th/cmm L=0.0 H=0.5 BASO abs count 704-7 0.0 th/cmm L=0.0 H=0. 2 IG abs count 11908-4 0.0 th/cmm L=0.0 H=0.1 NRBC abs count 99561-4 0.0 mil/cmm L=0.0 H=0. 0 RBC 789-8 3.87 mil/cmm L=3.90 H=5.40 HEMOGLOBIN 718-7 12.9 gm/dL L=12.0 H=16.0 HEMATOCRIT 4544-3 39 % L=37 H=47 MCV 787-2 101 fL L=82 H=92 MCH 785-6 33.3 pg L=27.0 H=31.0 MCHC 786-4 33.2 % L=32.0 H=36.0 RDW-SD 788-0 47.7 fL L=39.0 H=49.0 PLATELET COUNT 777-3 190 th/cmm L=150 H=45 0 VITAMIN B12 - Collect Date/T frederic: 09/13/2022 01:20 Test Name Code Test Result Test Units Test Ref Rang e Vitamin B12 282 N/A 211-865 Active Medications Medications Administered During Visit Medication Dose Units Frequency Route Date/Time of Last Dose LIDOCAINE PATCH 5% 1 PATCH X1 TOP 0 09/13/2022 04:28 DICYCLOMINE TABLET: 20MG 20 MG X1 PO 09/13/2022 04:28 Encounters Encounter Diagnosis Diagnosis Code Start Date Pain in thoracic spine [id number] Social History Smoking Status Code Start Date End Date Never smoker [id number] Patient Decision Aids Unknown or Not Available. Discharge Instructions You were admitted to [facility] on 09/13/2022 00:38 with a principal diagnosis of Pain in thoracic spine You had the following tests done:BASIC METABOLIC PANEL (BMP)BNP (PRO-B NATRIURETIC PEPTIDE)CBC W/ DIFFERENTIAL*HEPATIC FUNCTION PANELLIPASE* NEWTROPONIN HIGH SENSITIVITY*VITAMIN B12 You were discharged from [facility] on 09/13/2022 04:45 Should you have any questions prior to discharge, please contact a member of your healthcare team. If you have left the hospital and have any questions, please contact your primary care physician. Chief Complaint and Reason For Visit Chief Complaint Date of Onset CHEST PAINS Function Status Unknown or Not Available. Plan of Care Unknown or Not Available. Referral/Transition of Care Unknown or Not Available.
--- OUTSIDE RECORDS SUMMARY | 2023-05-08 11:33 | XMS_ITS | CCD ---
Author Name Unknown Address [address] [place] [address] [phone] Organization Unknown Address [address] [place] [address] [phone] Care Team Providers Care Medical Device Assembler Name Role Phone HERMINIO BLANCATYREL Zavala Attending Physician [phone] Vital Signs Unknown or Not Available. Allergies [...] Not Available. Results CULT URINE CULTURE* - Colle t Date/Time: 01/03/2023 12:00 Test Name Code Test Result Test Units Test Ref Rang e COLLECTION MODE: 53272-1 NOT STATED N/A URINALYSIS WITH REFLEX CULT IF POSITIVE* - Collect Date/Time: 01/03/2023 12:00 Test Name Code Test Result Test Units Test Ref Rang e COLLECTION MODE: 77949-5 NOT STATED N/A Color 5778-6 YELLOW N/A yellow Appearance 5767-9 CLEAR N/A clear Glucose urine 49605-6 NEGATIVE N/A negative mg /dl Bilirubin 5770-3 NEGATIVE N/A negative Ketones 2514-8 NEGATIVE N/A negative mg/dl Spec gravity 5811-5 1.010 N/A 1.003 - 1.03 0 pH urine 2756-5 7.0 N/A 5.0 - 7.0 Protein 90413-8 NEGATIVE N/A negative mg/dl Urobilinogen 63281-5 0.2 N/A <or= 1 EU/dl Nitrite. 5802-4 NEGATIVE N/A negative Blood 5794-3 NEGATIVE N/A negative Leukocytes. SMALL N/A negative MICROSCOPIC INDICATED N/A WBCs. 91294-2 0-5 N/A 0-5 / hpf RBCs 01053-3 5-10 N/A 0-5 / hpf Epith cells 20180-1 none N/A 0-5 / hpf Crystals none N/A none Bacteria none N/A none Mucus 8247-9 none N/A none Casts 33644-8 none N/A none /lpf Active Medications Unknown or Not Available. Medications Administered During Visit Unknown or Not Available. Encounters Encounter Diagnosis Diagnosis Code Start Date Dysuria [id number] 01/03/2023 Social History Smoking Status Code Start Date End Date Never smoker 238464387 Patient Decision Aids Unknown or Not Available. Discharge Instructions You were admitted to [facility] on 01/03/2023 12:31 with a principal diagnosis of Dysuria You had the following tests done:CULT URINE CULTURE*URINALYSIS WITH REFLEX CULT IF POSITIVE* You were discharged from [facility] on 01/03/2023 12:31 Should you have any questions prior to [...]
--- OUTSIDE RECORDS SUMMARY | 2023-05-08 11:34 | XMS_ITS | CCD ---
Author Name Unknown Address [address] [place] [address] [phone] Organization Unknown Address [address] [place] [address] [phone] Care Team Providers Care Desulfurizer Hand Name Role Phone DOMENICO LYN Attending Physician [phone] DOMENICO LYN Rounding (Secondary) Physician [phone] Vital Signs Unknown or Not Available. Allergies [...] Diagnosis Diagnosis Code Start Date Idiopathic osteoarthritis [id number] 2022 Social History Smoking Status Code Start Date End Date Never smoker 679713153 Patient Decision Aids Unknown or Not Available. Discharge Instructions You were admitted to [facility] on 06/28/2022 12:56 with a principal diagnosis of Unilateral primary osteoarthritis, right knee You were discharged from [facility] on 06/28/2022 00:00 Should you have any questions prior [...]
--- OUTSIDE RECORDS SUMMARY | 2023-05-08 11:34 | XMS_ITS | CCD ---
Author Name Unknown Address [address] [place] [address] [phone] Organization Unknown Address [address] [place] [address] [phone] Care Team Providers Care Bundle Shaker Name Role Phone QUINTON BULLARD Attending Physician [phone] QUINTON BULLARD Rounding (Secondary) Physicia n [phone] Vital Signs Unknown or Not Available. Allergies [...] Encounters Encounter Diagnosis Diagnosis Code Start Date Onychogryposis [id number] 07/13/2022 Social History Smoking Status Code Start Date End Date Never smoker 055830711 Patient Decision Aids Unknown or Not Available. Discharge Instructions You were admitted to [facility] on 07/13/2022 08:45 with a principal diagnosis of Onychogryphosis You were discharged from [facility] on 07/13/2022 00:00 Should you have any questions prior [...]
--- OUTSIDE RECORDS SUMMARY | 2023-05-08 11:34 | XMS_ITS | CCD ---
Author Name Unknown Address [address] [place] [address] [phone] Organization Unknown Address [address] [place] [address] [phone] Care Team Providers Care Pharmacy Benefits Coordinator Name Role Phone HERMINIO, MCKATYREL Zavala Attending Physician [phone] Vital Signs Unknown or Not Available. [...] Available. Problems Unknown or Not Available. Results FERRITIN - Collect Date/Time : 01/12/2022 10:22 Test Name Code Test Result Test Units Test Ref Rang e FERRITIN 2276-4 156 ng/mL L=8 H=388 TSH THYROID STIMULATING HORM ONE* - Collect Date/Time: 01/12/2022 10:22 Test Name Code Test Result Test Units Test Ref Rang e TSH 3014-8 1.131 uIU/mL L=0.360 H=3.74 0 Active Medications Unknown or Not Available. Medications Administered During Visit Unknown or Not Available. Encounters Encounter Diagnosis Diagnosis Code Start Date Hypothyroidism 71101094 01/12/2022 Social History Smoking Status Code Start Date End Date Never smoker 978695665 Patient Decision Aids Unknown or Not Available. Discharge Instructions You were admitted to [facility] on 01/12/2022 21:00 with a principal diagnosis of Hypothyroidism, unspecified You had the following tests done:FERRITINTSH THYROID STIMULATING HORMONE* You were discharged from [facility] on 01/12/2022 21:00 Should you have any questions prior to [...]
--- OUTSIDE RECORDS SUMMARY | 2023-05-08 11:34 | XMS_ITS | CCD ---
Author Name Unknown Address [address] [place] [address] [phone] Organization Unknown Address [address] [place] [address] [phone] Care Team Providers Care Paper Cutter Name Role Phone MARC SHARMA Attending Physician [phone] MARC SHARMA Rounding (Secondary) Physician [phone] Vital Signs Unknown or Not Available. Allergies [...] Diagnosis Diagnosis Code Start Date Idiopathic osteoarthritis [id number] 2021 Social History Smoking Status Code Start Date End Date Never smoker 507316284 Patient Decision Aids Unknown or Not Available. Discharge Instructions You were admitted to [facility] on 10/31/2021 13:37 with a principal diagnosis of Unilateral primary osteoarthritis, right knee You were discharged from [facility] on 10/31/2021 00:00 Should you have any questions prior [...]
--- OUTSIDE RECORDS SUMMARY | 2023-05-08 11:34 | XMS_ITS | CCD ---
Author Name Unknown Address [address] [place] [address] [phone] Organization Unknown Address [address] [place] [address] [phone] Care Team Providers Care Manager Company Name Role Phone HERMINIO, MCKATYREL Zavala Attending Physician [phone] Vital Signs Unknown or Not Available. [...] Available. Problems Unknown or Not Available. Results URINALYSIS WITH REFLEX CULT IF POSITIVE* - Collect Date/Time: 03/06/2022 14:43 Test Name Code Test Result Test Units Test Ref Rang e COLLECTION MODE: 10196-2 CLEAN CATCH N/A Color 5778-6 YELLOW N/A yellow Appearance 5767-9 CLEAR N/A clear Glucose urine 69687-9 NEGATIVE N/A negative mg /dl Bilirubin 5770-3 NEGATIVE N/A negative Ketones 2514-8 NEGATIVE N/A negative mg/dl Spec gravity 5811-5 1.010 N/A 1.003 - 1.03 0 pH urine 2756-5 6.0 N/A 5.0 - 7.0 Protein 03523-6 NEGATIVE N/A negative mg/dl Urobilinogen 14530-7 0.2 N/A <or= 1 EU/dl Nitrite. 5802-4 NEGATIVE N/A negative Blood 5794-3 MODERATE N/A negative Leukocytes. NEGATIVE N/A negative MICROSCOPIC INDICATED N/A WBCs. 36441-3 none N/A 0-5 / hpf RBCs 22466-1 5-10 N/A 0-5 / hpf Epith cells 40109-9 none N/A 0-5 / hpf Crystals none N/A none Bacteria none N/A none Mucus 8247-9 none N/A none Casts 73979-0 none N/A none /lpf Active Medications Unknown or Not Available. Medications Administered During Visit Unknown or Not Available. Encounters Encounter Diagnosis Diagnosis Code Start Date Genitourinary symptoms [id number] 2 Social History Smoking Status Code Start Date End Date Never smoker [id number] Patient Decision Aids Unknown or Not Available. Discharge Instructions You were admitted to [facility] on 03/06/2022 14:13 with a principal diagnosis of Unspecified symptoms and signs involving the genitourinary system You had the following tests done:URINALYSIS WITH REFLEX CULT IF POSITIVE* You were discharged from [facility] on 03/06/2022 14:13 Should you have any questions prior to [...]
--- OUTSIDE RECORDS SUMMARY | 2023-05-08 11:34 | XMS_ITS | CCD ---
Author Name Unknown Address [address] [place] [address] [phone] Organization Unknown Address [address] [place] [address] [phone] Care Team Providers Care Inspector Line Name Role Phone LYN SANDOVAL Attending Physician [phone] Vital Signs Unknown or Not Available. Allergies [...] Available. Problems Unknown or Not Available. Results COMPREHENSIVE METABOLIC PANE L (CMP) - Collect Date/Time: 01/12/2022 10:22 Test Name Code Test Result Test Units Test Ref Rang e GLUCOSE 2345-7 109 mg/dL L=70 H=116 BUN 3094-0 12 mg/dL L=6 H=25 CREATININE 2160-0 0.63 mg/dL L=0.51 H=0.95 SODIUM SERUM 2951-2 140 mmol/L L=136 H=145 POTASSIUM SERUM 2823-3 3.9 mmol/L L=3.4 H=5 .2 CHLORIDE SERUM 2075-0 103 mmol/L L=96 H=110 CARBON DIOXIDE (CO2) 2028-9 30 mmol/L L=22 H=34 ANION GAP 36724-4 7.5 mmol/L CALCIUM SERUM 20353-0 8.7 mg/dL L=8.2 H=10. 2 BILIRUBIN TOTAL 1975-2 0.4 mg/dL L=0.0 H=1 .3 ALK. PHOS. 6768-6 46 U/L L=46 H=116 SGOT (AST) 1920-8 25 U/L L=15 H=37 SGPT (ALT) 1742-6 26 U/L L=12 H=78 TOTAL PROTEIN 2885-2 7.2 gm/dL L=6.0 H=8.0 ALBUMIN 1751-7 4.1 gm/dL L=3.4 H=5.0 AGE 71 years eGFR (non-Afr.Amer.) 73663-9 93 mL/min eGFR (Afr-Djiboutian) 64634-8 113 mL/min Active Medications Unknown or Not Available. Medications Administered During Visit Unknown or Not Available. Encounters Encounter Diagnosis Diagnosis Code Start Date Senile osteoporosis 31370126 01/12/2022 Social History Smoking Status Code Start Date End Date Never smoker 282062123 Patient Decision Aids Unknown or Not Available. Discharge Instructions You were admitted to [facility] on 01/12/2022 10:06 with a principal diagnosis of Age-related osteoporosis without current pathological fracture You had the following tests done:COMPREHENSIVE METABOLIC PANEL (CMP) You were discharged from [facility] on 01/12/2022 10:06 Should you have any questions prior to [...]
--- OUTSIDE RECORDS SUMMARY | 2023-05-08 11:34 | XMS_ITS | CCD ---
Author Name Unknown Address [address] [place] [address] [phone] Organization Unknown Address [address] [place] [address] [phone] Care Team Providers Care Clinical Coder Name Role Phone MARC SHARMA Attending Physician [phone] MARC SHARMA Rounding (Secondary) Physician [phone] Vital Signs Unknown or Not Available. Allergies [...] Diagnosis Diagnosis Code Start Date Idiopathic osteoarthritis [id number] 2021 Social History Smoking Status Code Start Date End Date Never smoker 532100227 Patient Decision Aids Unknown or Not Available. Discharge Instructions You were admitted to [facility] on 02/13/2022 12:59 with a principal diagnosis of Unilateral primary osteoarthritis, right knee You were discharged from [facility] on 02/13/2022 00:00 Should you have any questions prior [...]
--- OUTSIDE RECORDS SUMMARY | 2023-05-08 11:34 | XMS_ITS | CCD ---
Author Name Unknown Address [address] [place] [address] [phone] Organization Unknown Address [address] [place] [address] [phone] Care Team Providers Care Hydrographic Engineer Name Role Phone LYN SANDOVAL Attending Physician [phone] Vital Signs Unknown or Not Available. Allergies [...] METABOLIC PANE L (CMP) - Collect Date/Time: 11/29/2021 09:14 Test Name Code Test Result Test Units Test Ref Rang e GLUCOSE 2345-7 105 mg/dL L=70 H=116 BUN 3094-0 10 mg/dL L=6 H=25 CREATININE 2160-0 0.68 mg/dL L=0.51 H=0.95 SODIUM SERUM 2951-2 139 mmol/L L=136 H=145 POTASSIUM SERUM 2823-3 4.1 mmol/L L=3.4 H=5 .2 CHLORIDE SERUM 2075-0 103 mmol/L L=96 H=110 CARBON DIOXIDE (CO2) 2028-9 30 mmol/L L=22 H=34 ANION GAP 58864-8 5.8 mmol/L CALCIUM SERUM 59453-0 8.6 mg/dL L=8.2 H=10. 2 BILIRUBIN TOTAL 1975-2 0.5 mg/dL L=0.0 H=1 .3 ALK. PHOS. 6768-6 45 U/L L=46 H=116 SGOT (AST) 1920-8 28 U/L L=15 H=37 SGPT (ALT) 1742-6 23 U/L L=12 H=78 TOTAL PROTEIN 2885-2 6.9 gm/dL L=6.0 H=8.0 ALBUMIN 1751-7 3.8 gm/dL L=3.4 H=5.0 AGE 71 years eGFR (non-Afr.Amer.) 17467-4 85 mL/min eGFR (Afr-Togolese) 04444-9 103 mL/min Active Medications Unknown or Not Available. Medications Administered During Visit Unknown or Not Available. Encounters Encounter Diagnosis Diagnosis Code Start Date Senile osteoporosis 93754817 11/29/2021 Social History Smoking Status Code Start Date End Date Never smoker 735109878 Patient Decision Aids Unknown or Not Available. Discharge Instructions You were admitted to [facility] on 11/29/2021 09:08 with a principal diagnosis of Age-related osteoporosis without current pathological fracture You had the following tests done:COMPREHENSIVE METABOLIC PANEL (CMP) You were discharged from [facility] on 11/29/2021 09:08 Should you have any questions prior to [...]
--- OUTSIDE RECORDS SUMMARY | 2023-05-08 11:35 | XMS_ITS | CCD ---
Author Name Unknown Address [address] [place] [address] [phone] Organization Unknown Address [address] [place] [address] [phone] Care Team Providers Care Kraft Mill Operator Name Role Phone ROMANBOB WU Todd Attending Physician [phone] Vital Signs Unknown or Not Available. Allergies [...] Available. Problems Unknown or Not Available. Results [facility] COVID RHEONIX* - Yahaira ect Date/Time: 09/12/2021 10:23 Test Name Code Test Result Test Units Test Ref Rang e Tier- 37815-5 EXPOSURE N/A SARS COV2 RNA: 53576-1 NEGATIVE N/A REFERENCE RANGE: NEGAT Active Medications Unknown or Not Available. Medications Administered During Visit Unknown or Not Available. Encounters Encounter Diagnosis Diagnosis Code Start Date Exposure to SARS-CoV-2 765359326 Social History Smoking Status Code Start Date End Date Never smoker 736222356 Patient Decision Aids Unknown or Not Available. Discharge Instructions You were admitted to [facility] on 09/12/2021 18:36 with a principal diagnosis of Contact with and (suspected) exposure to COVID-19 You had the following tests done:OMAR COVID RHEONIX* You were discharged from [facility] on 09/12/2021 18:36 Should you have any questions prior to [...]
--- OUTSIDE RECORDS SUMMARY | 2023-05-08 11:35 | XMS_ITS | CCD ---
Author Name Unknown Address [address] [place] [address] [phone] Organization Unknown Address [address] [place] [address] [phone] Care Team Providers Care Window Shade Cloth Sewer Name Role Phone SAIMA NUR Bernarda Attending Physician [phone] Vital Signs Vital Sign Value Unit Date/Time Recent/Initial ? BP Systolic 144 mmHg 09/21/2021 12:34 Initial VS BP Diastolic 68 mmHg 09/21/2021 12:34 Initia l VS Respiratory Rate 16 bpm 09/21/2021 12:34 In itial VS Heart Rate 58 bpm 09/21/2021 12:34 Initial VS O2 % BldC Oximetry 100 % 09/21/2021 12:34 Initial VS Allergies Allergy Code Allergy Type Reaction Status SHELLFISH\X0D0A\ {Clinical monitoring unavailable} 0 Drug allergy NAUSEA AND VOMITING Acti ve ? STEROID VS PARTH {Clinical monitoring unavailable} 0 Drug allergy ITCHYNESS AFTER JOINT INJECTION Active TAPE {Clinical monitoring unavailable} 0 Drug allergy Active PROCHLORPERAZINE 8704 Drug allergy Active TAPE 0 Allergy to substance Acti ve Procedures Procedure Code Procedure Type Date Colsc Fl[place] [address] CPT 09/21/2021 History of Immunizations Unknown or Not Available. Problems Unknown or Not Available. Results Unknown or Not Available. Active Medications Unknown or Not Available. Medications Administered During Visit Unknown or Not Available. Encounters Encounter Diagnosis Diagnosis Code Start Date Encounter for screening for malignant neoplasm o f colon Z1211 09/21/2021 Social History Smoking Status Code Start Date End Date Never smoker 557419885 Patient Decision Aids Unknown or Not Available. Discharge Instructions You were admitted to [facility] on 09/21/2021 10:32 with a principal diagnosis of Encounter for screening for malignant neoplasm of colon You had the following procedures done:Colsc Flx w/Rmvl Of Tumor Polyp Lesion Snare Tq You were discharged from [facility] on 09/21/2021 13:01 Should you have any questions prior to [...]
--- OUTSIDE RECORDS SUMMARY | 2023-05-08 11:35 | XMS_ITS | CCD ---
Author Name Unknown Address [address] [place] [address] [phone] Organization Unknown Address [address] [place] [address] [phone] Care Team Providers Care Captain Assistant Name Role Phone CRYSTAL MEDRANO Attending Physician [phone] CRYSTAL MEDRANO (Secondary) Physician [phone] Vital Signs Unknown or Not Available. Allergies [...] Diagnosis Diagnosis Code Start Date Idiopathic osteoarthritis 604821948 2021 Social History Smoking Status Code Start Date End Date Never smoker 326345189 Patient Decision Aids Unknown or Not Available. Discharge Instructions You were admitted to [facility] on 07/14/2021 10:31 with a principal diagnosis of Unilateral primary osteoarthritis, right knee You were discharged from [facility] on 07/14/2021 00:00 Should you have any questions prior [...]
--- OUTSIDE RECORDS SUMMARY | 2023-05-08 11:36 | XMS_ITS | CCD ---
Author Name Unknown Address [address] [place] [address] [phone] Organization Unknown Address [address] [place] [address] [phone] Care Team Providers Care Vice President Tax Name Role Phone FAVIOLA DURHAMDewayne Sally Attending Physician [phone] Vital Signs Unknown or Not Available. [...] Not Available. Results CULT URINE CULTURE* - [facility] t Date/Time: 06/24/2021 09:46 Test Name Code Test Result Test Units Test Ref Rang e COLLECTION MODE: CLEAN CATCH N/A URINALYSIS WITH REFLEX CULT IF POSITIVE* - Collect Date/Time: 06/24/2021 09:46 Test Name Code Test Result Test Units Test Ref Rang e COLLECTION MODE: CLEAN CATCH N/A Color YELLOW N/A yellow Appearance HAZY N/A clear Glucose urine NEGATIVE N/A negative mg /dl Bilirubin NEGATIVE N/A negative Ketones TRACE N/A negative mg/dl Spec gravity 1.025 N/A 1.003 - 1.03 0 pH urine 6.0 N/A 5.0 - 7.0 Protein NEGATIVE N/A negative mg/dl Urobilinogen 0.2 N/A <or= 1 EU/dl Nitrite. NEGATIVE N/A negative Blood LARGE N/A negative Leukocytes. SMALL N/A negative MICROSCOPIC INDICATED N/A WBCs. >100 N/A 0-5 / hpf RBCs 5-10 N/A 0-5 / hpf Epith cells 0-5 N/A 0-5 / hpf Cell types squamous N/A Crystals none N/A none Bacteria moderate N/A none Mucus none N/A none Casts none N/A none /lpf Other AMOEBOID LEUKOCYTES N/A Active Medications Unknown or Not Available. Medications Administered During Visit Unknown or Not Available. Encounters Encounter Diagnosis Diagnosis Code Start Date H/O: urinary disease [id number] 06/24/2021 Social History Smoking Status Code Start Date End Date Never smoker [id number] Patient Decision Aids Unknown or Not Available. Discharge Instructions You were admitted to [facility] on 06/24/2021 09:44 with a principal diagnosis of Personal history of other diseases of urinary system You had the following tests done:CULT URINE CULTURE*URINALYSIS WITH REFLEX CULT IF POSITIVE* You were discharged from [facility] on 06/24/2021 09:44 Should you have [...]
--- OUTSIDE RECORDS SUMMARY | 2023-05-08 11:36 | XMS_ITS | CCD ---
Author Name Unknown Address [address] [place] [address] [phone] Organization Unknown Address [address] [place] [address] [phone] Care Team Providers Care Gymnastics Coach Name Role Phone CRYSTAL MEDRANO Attending Physician [phone] CRYSTAL MEDRANO (Secondary) Physician [phone] Vital Signs Unknown or Not Available. Allergies [...] Diagnosis Diagnosis Code Start Date Idiopathic osteoarthritis [id number] 2020 Social History Smoking Status Code Start Date End Date Never smoker [id number] Patient Decision Aids Unknown or Not Available. Discharge Instructions You were admitted to [facility] on 03/10/2021 09:02 with a principal diagnosis of Unilateral primary osteoarthritis, right knee You were discharged from [facility] on 03/10/2021 00:00 Should you have any [...]
--- OUTSIDE RECORDS SUMMARY | 2023-05-08 11:36 | XMS_ITS | CCD ---
Author Name Unknown Address [address] [place] [address] [phone] Organization Unknown Address [address] [place] [address] [phone] Care Team Providers Care Senior Technical Project Manager Name Role Phone BLANCA DURHAMTYREL Sally Attending Physician [phone] Vital Signs Unknown or Not Available. [...] Not Available. Results GLUCOSE FASTING BLOOD* - Col lect Date/Time: 04/14/2021 08:00 Test Name Code Test Result Test Units Test Ref Rang e GLUCOSE FASTING 18114-6 96 mg/dL L=70 H=11 6 LIPID PANEL* - Collect Date/ Time: 04/14/2021 08:00 Test Name Code Test Result Test Units Test Ref Rang e CHOLESTEROL 2093-3 301 mg/dL L=0 H=200 TRIGLYCERIDES 2571-8 76 mg/dL L=57 H=256 HDL 2085-9 75 mg/dL L=38 H=92 non-HDL-C 59836-3 226 mg/dL L=0 H=160 LDL (CALC) 39236-2 211 mg/dL L=0 H=130 % HDL 24.9 % Chol/HDL Ratio 9830-1 4.0 L=0.0 H=4. 4 CHD Relative Risk 0.9 x Avg L=0.0 H =1.0 LDL/HDL Ratio 09519-0 2.8 L=0.0 H=3.2 CHD Relative Risk. 0.9 x Avg L=0.0 H=1.0 FASTING STATUS: FASTING N/A Active Medications Unknown or Not Available. Medications Administered During Visit Unknown or Not Available. Encounters Encounter Diagnosis Diagnosis Code Start Date Prediabetes [id number] 04/14/2021 Social History Smoking Status Code Start Date End Date Never smoker 091673734 Patient Decision Aids Unknown or Not Available. Discharge Instructions You were admitted to [facility] on 04/14/2021 07:23 with a principal diagnosis of Prediabetes You had the following tests done:GLUCOSE FASTING BLOOD*LIPID PANEL* You were discharged from [facility] on 04/14/2021 07:23 Should you have [...]
--- OUTSIDE RECORDS SUMMARY | 2023-05-08 11:36 | XMS_ITS | CCD ---
Author Name Unknown Address [address] [place] [address] [phone] Organization Unknown Address [address] [place] [address] [phone] Care Team Providers Care Manager Management Name Role Phone SHO SARAVIA Attending Physician [phone] SHO SARAVIA Rounding (Secondary) Physician [phone] Vital Signs Unknown or Not Available. Allergies [...] During Visit Unknown or Not Available. Encounters Unknown or Not Available. Social History Smoking Status Code Start Date End Date Never smoker [id number] Patient Decision Aids Unknown or Not Available. Discharge Instructions You were admitted to [facility] on 05/03/2023 00:00 You were discharged from [facility] on 05/03/2023 15:13 Should you have any questions prior to [...]
--- OUTSIDE RECORDS SUMMARY | 2023-05-08 11:36 | XMS_ITS | CCD ---
Author Name Unknown Address [address] [place] [address] [phone] Organization Unknown Address [address] [place] [address] [phone] Care Team Providers Care Local Tanker Truck Driver Name Role Phone QUINTON BULLARD Attending Physician [phone] QUINTON BULLARD Rounding (Secondary) Physicia n [phone] Vital Signs Unknown or Not Available. Allergies [...] Encounters Encounter Diagnosis Diagnosis Code Start Date Onychomycosis due to dermatophyte [id number] 04/10/2023 Social History Smoking Status Code Start Date End Date Never smoker [id number] Patient Decision Aids Unknown or Not Available. Discharge Instructions You were admitted to [facility] on 04/10/2023 00:00 with a principal diagnosis of Tinea unguium You were discharged from [facility] on 04/10/2023 09:18 Should you have any questions prior to discharge, please contact a member of your healthcare team. If you have left the hospital and have any questions, please contact your primary care physician. Chief Complaint and Reason For Visit Unknown or Not Available. Function Status Unknown or Not Available. Plan of Care Diagnostic Test Pending Plan of Care Pending Diagnos tic Test [facility] CLTURE/SMEAR FUNGUS SKI N HAIR NAIL*, [LOINC: 580-1], 04/10/2023 Referral/Transition of Care Unknown or Not Available.
--- OUTSIDE RECORDS SUMMARY | 2023-05-08 11:36 | XMS_ITS | CCD ---
Author Name Unknown Address [address] [place] [address] [phone] Organization Unknown Address [address] [place] [address] [phone] Care Team Providers Care Bulk Mail Technician Name Role Phone LYN SANDOVAL Attending Physician [phone] Vital Signs Unknown or Not Available. Allergies [...] BASIC METABOLIC PANEL (BMP) - Collect Date/Time: 06/19/2021 09:36 Test Name Code Test Result Test Units Test Ref Rang e GLUCOSE 2345-7 91 mg/dL L=70 H=116 BUN 3094-0 10 mg/dL L=6 H=25 CREATININE 2160-0 0.61 mg/dL L=0.51 H=0.95 SODIUM SERUM 2951-2 142 mmol/L L=136 H=145 POTASSIUM SERUM 2823-3 4.2 mmol/L L=3.4 H=5 .2 CHLORIDE SERUM 2075-0 104 mmol/L L=96 H=110 CARBON DIOXIDE (CO2) 2028-9 32 mmol/L L=22 H=34 ANION GAP 29574-0 6.4 mmol/L CALCIUM SERUM 07154-4 9.1 mg/dL L=8.2 H=10. 2 AGE 70 years eGFR (non-Afr.Amer.) 16614-4 97 mL/min eGFR (Afr-S[place]) 03929-8 117 mL/min NTX-TELOPEPTIDE URINE* - Col lect Date/Time: 06/19/2021 09:36 Test Name Code Test Result Test Units [place] 07283-2 31 nmol/[place] [address]-0 23 Creatinine, Random, U 2161-8 15 N/A Active Medications Unknown or Not Available. Medications Administered During Visit Unknown or Not Available. Encounters Encounter Diagnosis Diagnosis Code Start Date Senile osteoporosis [id number] 06/19/2021 Social History Smoking Status Code Start Date End Date Never smoker [id number] Patient Decision Aids Unknown or Not Available. Discharge Instructions You were admitted to [facility] on 06/19/2021 09:02 with a principal diagnosis of Age-related osteoporosis without current pathological fracture You had the following tests done:BASIC METABOLIC PANEL (BMP)NTX-TELOPEPTIDE URINE* You were discharged from [facility] on 06/19/2021 09:02 Should you have [...]
[2023-05-08 21:03] LABS: HCT 41.8 % (36.0-46.0); HGB 14.2 g/dL (11.2-15.7); MCH 33.7 pg (27.0-33.0); MCV 99 fL (80-95); Platelet Count 189 10^3/uL (130-400); RBC 4.21 10^6/uL (3.93-5.22); RDW-SD 44.4 fL; WBC 5.66 10^3/uL (4.4-10.8)
[2023-05-08 21:28] LABS: Anion Gap 9.2 mmol/L (3-11); BUN 16 mg/dL (7-18); CO2 28.8 mmol/L (21.0-32.0); CREATININE 0.9 mg/dL (0.55-1.02); Calcium 9.4 mg/dL (8.5-10.1); Chloride 102 mmol/L (98-107); Estimated GFR 67.92 (mL/min/1.73m2); Glucose 104 mg/dL (74-106); Magnesium 2.3 mg/dL (1.8-2.4); Potassium 4.1 mmol/L (3.5-5.1); Sodium 140 mmol/L (136-145); TSH (W/Ref FT4) 3.61 uIU/mL (0.36-3.74)
== END 2023-05-08 11:29 | disposition home or self-care (01) ==
LOC: NCHCN 11:28
PROVIDERS: PCP Family Medicine; Visit Provider Family Medicine
DX: I48.0 Paroxysmal atrial fibrillation (principal)
CPT/HCPCS: 80048; 85027; 83735; 84443

== ENCOUNTER 2024-04-22 10:45 | Outpatient (REF) | payer MEDICARE, BC, SELFPAY ==
[2024-04-22 15:25] LABS: Anion Gap 6.3 mmol/L (3-11); BUN 12 mg/dL (7-18); CO2 30.7 mmol/L (21.0-32.0); CREATININE 0.7 mg/dL (0.55-1.02); Calcium 9.4 mg/dL (8.5-10.1); Calculated LDL 209 mg/dL (<100); Chloride 106 mmol/L (98-107); Cholesterol 313 mg/dL (<200); Estimated GFR 91.26 (mL/min/1.73m2); Glucose 104 mg/dL (74-106); HDL Cholesterol 78 mg/dL (40-60); Sodium 143 mmol/L (136-145); TSH 1.25 uIU/mL (0.36-3.74); Triglyceride 130 mg/dL (<150)
== END 2024-04-22 10:46 | disposition home or self-care (01) ==
LOC: NCHCN 10:45
PROVIDERS: PCP Family Medicine; Visit Provider Family Medicine
DX: E03.9 Hypothyroidism, unspecified (principal); Z00.00 Encounter for general adult medical examination without abnormal findings
CPT/HCPCS: 80048; 80061; 84443

== ENCOUNTER 2024-10-13 11:42 | Outpatient (REF) | payer MEDICARE, BC, SELFPAY ==
--- NOTE | 2024-10-13 14:20 | SKI_PTH ---
PATIENT: Anne Dawson LOC: [facility] U#:[id number] AGE/SX: 74/F ROOM: RE10/13/[address]: Mariam Doe : 1950 BED: DIS: 10/13/2024 SPEC #: [id number] RECD: 10/14/24 12:52 STATUS: KEIRA REBrooks #: [id number] KATE: 10/13/24 14:[address]: Mariam Doe DEPT: Surgical Specimen RECD BY: Kimberly Raygoza ENTERED: 10/14/24 12:54 SP TYPE: MICHAEL ACE DR: Alvarez Mann Tissues: 1 - SKIN BIOPSY(SHAVE/PUNCH) Procedures: SKIN LEVEL 4 Comments: [id number]
== END 2024-10-13 11:43 | disposition home or self-care (01) ==
LOC: LBN 11:42
PROVIDERS: PCP Family Medicine; Visit Provider Family Medicine
DX: D48.9 Neoplasm of uncertain behavior, unspecified (principal); L85.8 Other specified epidermal thickening
CPT/HCPCS: 88305

== ENCOUNTER 2024-12-10 14:54 | Outpatient (REF) | payer MEDICARE, BC, SELFPAY | END 2024-12-10 14:55 | disposition home or self-care (01) | LOC: NCHCN 14:54 | PROVIDERS: PCP Family Medicine; Visit Provider Family Medicine | DX: N39.0 Urinary tract infection, site not specified (principal) | CPT/HCPCS: 87077; 87086; 87186 ==